=== PATIENT | male | born 1970 | race Caucasian/White ===

== ENCOUNTER 2017-01-13 15:29 | Emergency (ER) | payer OTHER ==
[~2017-01-13] VITALS: Ht 182.9 cm; Wt 86.2 kg
[2017-01-13] MEDS ORDERED: CANA300T (15:47)
[2017-01-13] MEDS ORDERED: SILD100T (15:47)
[2017-01-13] MEDS ORDERED: SITA1TBM4 (15:47)
[2017-01-13] MEDS ORDERED: LISI2.5T (15:47)
[2017-01-13] MEDS ORDERED: GLIP-197 (15:47)
[2017-01-13] MEDS ORDERED: NS IV 1000 ML 1,000 ML IV ONE ×2 (16:01→18:04)
[2017-01-13 16:12] LABS: BASOPHILS % (AUTO) 0 % (0-10); EOSINOPHILS # (AUTO) 0.2 10^3/uL (0.0-0.3); EOSINOPHILS % (AUTO) 1 % (0-10); LYMPHOCYTES # (AUTO) 2.2 X 10^3 (1.0-4.0); LYMPHOCYTES % (AUTO) 13 % (12-44); MEAN CORPUSCULAR HEMOGLOBIN 31 PG (25-34); MEAN CORPUSCULAR HGB CONC 36 G/DL (32-36); MEAN CORPUSCULAR VOLUME 88 FL (80-99); MEAN PLATELET VOLUME 11.4 FL (7.4-10.4); MONOCYTES # (AUTO) 0.9 X 10^3 (0.0-1.0); MONOCYTES % (AUTO) 6 % (0-12); NEUTROPHILS # (AUTO) 13.6 X 10^3 (1.8-7.8); NEUTROPHILS % (AUTO) 80 % (42-75); PLATELET COUNT 238 10^3/uL (130-400); RED BLOOD COUNT 5.84 10^6/uL (4.35-5.85); RED CELL DISTRIBUTION WIDTH 12.7 % (10.0-14.5); WHITE BLOOD COUNT 16.9 10^3/uL (4.3-11.0)
[2017-01-13] MEDS ORDERED: FAMOTIDINE 20MG/2ML IV (PEPCID) IVP ONE (16:15)
[2017-01-13] MEDS ORDERED: fentaNYL INJECTION 100 MCG/2 ML AMP IVP ONE (16:15)
[2017-01-13] MEDS ORDERED: ONDANSETRON 4 MG/2 ML (SDV) Z0FRAN IVP ONE (16:15)
[2017-01-13 16:27] LABS: BAND NEUTROPHILS 14 %; BASOPHILS % (MANUAL) 1 %; EOSINOPHILS % (MANUAL) 1 %; LYMPHOCYTES % (MANUAL) 19 %; NEUTROPHILS % (MANUAL) 61 %
[2017-01-13 16:37] LABS: ALANINE AMINOTRANSFERASE 29 U/L (0-55); ALBUMIN 4.6 GM/DL (3.2-4.5); ANION GAP 13 MMOL/L (5-14); ASPARTATE AMINO TRANSFERASE 16 U/L (5-34); BILIRUBIN,TOTAL 0.5 MG/DL (0.1-1.0); BLOOD UREA NITROGEN 15 MG/DL (7-18); BUN/CREATININE RATIO 14; CARBON DIOXIDE 23 MMOL/L (21-32); CHLORIDE 104 MMOL/L (98-107); CREATININE SERUM 1.07 MG/DL (0.60-1.30); GFR ESTIMATED > 60; GLUCOSE 194 MG/DL (70-105); LIPASE 32 U/L (8-78); SODIUM 140 MMOL/L (135-145); TOTAL PROTEIN 7.8 GM/DL (6.4-8.2)
[2017-01-13 17:12] LABS: BILIRUBIN,URINE NEGATIVE (NEGATIVE); KETONES,URINE 3+ (NEGATIVE); LEUKOCYTE ESTERASE ,URINE NEGATIVE (NEGATIVE); NITRITE,URINE NEGATIVE (NEGATIVE); PH,URINE 7 (5-9); PROTEIN,URINE 1+ (NEGATIVE); UROBILINOGEN,URINE NORMAL (NORMAL)
[2017-01-13 17:21] LABS: WBC,URINE 0-2 /HPF
[2017-01-13] MEDS ORDERED: NS 100 ML (IVPB) BAG IV ONE (17:30)
[2017-01-13] MEDS ORDERED: IOHEXOL 350 MG/ML 100 ML (OMNIPAQUE 350) VIAL IV ONE (17:30)
--- NOTE | 2017-01-13 17:34 | ED Abdominal Pain ---
General Chief Complaint: Abdominal/GI Problems Stated Complaint: FEELING LIKE HES GONNA PASS OUT, STOMACH PAIN,SOB Nursing Triage Note: ARRIVED VIA AMB BENT OVER HOLDING STOMACH. 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 Sepsis Screen: No Definite Risk Source of Information: Patient Exam Limitations: No Limitations History of Present Illness Time Seen By Provider: 15:36 Initial Comments This 46-year-old gentleman presents to the emergency room with severe lower abdominal pain that started within the last few hours. He reports more mild and intermittent cramping and constipation over the past month. Today the pain became severe. His last bowel movement was about 3 hours prior to arrival and was normal. The intense pain has been accompanied by vomiting. He denies any urinary changes or fever. He feels like he needs to produce a bowel movement but cannot. Allergies and Home Medications Allergies Coded Allergies: amoxicillin (Verified Allergy, Severe, RASH, 01/13/17) clavulanic acid (Verified Allergy, Severe, RASH, 01/13/17) Home Medications Canagliflozin 300 Mg Tablet, (Reported) Glipizide 10 Mg Tab.er.24, (Reported) Lisinopril 2.5 Mg Tablet, (Reported) Sildenafil Citrate 100 Mg Tablet, (Reported) Sitagliptin Phos/Metformin HCl 1 Each Tbmp.24hr, (Reported) Review of Systems Constitutional: no symptoms reported EENTM: No Symptoms Reported Respiratory: No Symptoms Reported Cardiovascular: No Symptoms Reported Gastrointestinal: See HPI Genitourinary: No Symptoms Reported Musculoskeletal: no symptoms reported Skin: no symptoms reported Psychiatric/Neurological: No Symptoms Reported Endocrine: No Symptoms Reported Past Goohutm-Ojczow-Qmooxz Hx Patient Social History Alcohol Use: Denies Use Recreational Drug Use: No Smoking Status: Current Everyday Smoker Recent Foreign Travel: No Contact w/Someone Who Travel: No Recent Infectious Disease Expo: No Surgeries History of Surgeries: Yes Surgeries: Appendectomy Respiratory History of Respiratory Disorde: No Cardiovascular History of Cardiac Disorders: No Neurological History of Neurological Disord: No Reproductive System Hx Reproductive Disorders: No Genitourinary History of Genitourinary Disor: No Gastrointestinal History of Gastrointestinal Di: No Musculoskeletal History of Musculoskeletal Dis: No Endocrine History of Endocrine Disorders: Yes Endocrine Disorders: Diabetes, Non-Insulin dep HEENT History of HEENT Disorders: No Cancer History of Cancer: No Psychosocial History of Psychiatric Problem: No Integumentary History of Skin or Integumenta: No Physical Exam Vital Signs VS - Last 72 Hours, by Label 01/13/17 15:37 Temp 98.0 Pulse 102 Resp 18 B/P (MAP) 114/94 Pulse Ox 99 Capillary Refill : Less Than 3 Seconds General Appearance: WD/WN, moderate distress HEENT: PERRL/EOMI, normal ENT inspection Neck: normal inspection Respiratory: lungs clear, normal breath sounds, no respiratory distress, no accessory muscle use Cardiovascular: regular rate, rhythm, no edema, no murmur Gastrointestinal: normal bowel sounds, soft, tenderness (lower abdomen) Extremities: normal inspection, no pedal edema Neurologic/Psychiatric: customer relationship specialist II-XII nml as tested, no motor/sensory deficits, alert, normal mood/affect, oriented x 3 Skin: normal color, warm/dry Progress/Results/Core Measures Results/Orders Lab Results Laboratory Tests Test 01/13/17 16:05 01/13/17 17:06 Range/Units White Blood Count 16.9 H 4.3-11.0 10^3/uL Red Blood Count 5.84 4.35-5.85 10^6/uL Hemoglobin 18.3 H 13.3-17.7 G/DL Hematocrit 51 40-54 % Mean Corpuscular Volume 88 80-99 FL Mean Corpuscular Hemoglobin 31 25-34 PG Mean Corpuscular Hemoglobin Concent 36 32-36 G/DL Red Cell Distribution Width 12.7 10.0-14.5 % Platelet Count 238 130-400 10^3/uL Mean Platelet Volume 11.4 H 7.4-10.4 FL Neutrophils (%) (Auto) 80 H 42-75 % Lymphocytes (%) (Auto) 13 12-44 % Monocytes (%) (Auto) 6 0-12 % Eosinophils (%) (Auto) 1 0-10 % Basophils (%) (Auto) 0 0-10 % Neutrophils # (Auto) 13.6 H 1.8-7.8 X 10^3 Lymphocytes # (Auto) 2.2 1.0-4.0 X 10^3 Monocytes # (Auto) 0.9 0.0-1.0 X 10^3 Eosinophils # (Auto) 0.2 0.0-0.3 10^3/uL Basophils # (Auto) 0.0 0.0-0.1 10^3/uL Neutrophils % (Manual) 61 % Lymphocytes % (Manual) 19 % Monocytes % (Manual) 4 % Eosinophils % (Manual) 1 % Basophils % (Manual) 1 % Band Neutrophils 14 % Blood Morphology Comment NORMAL Sodium Level 140 135-145 MMOL/L Potassium Level 4.0 3.6-5.0 MMOL/L Chloride Level 104 98-107 MMOL/L Carbon Dioxide Level 23 21-32 MMOL/L Anion Gap 13 5-14 MMOL/L Blood Urea Nitrogen 15 7-18 MG/DL Creatinine 1.07 0.60-1.30 MG/DL Estimat Glomerular Filtration Rate > 60 BUN/Creatinine Ratio 14 Glucose Level 194 H 70-105 MG/DL Calcium Level 10.0 8.5-10.1 MG/DL Total Bilirubin 0.5 0.1-1.0 MG/DL Aspartate Amino Transf (AST/SGOT) 16 5-34 U/L Alanine Aminotransferase (ALT/SGPT) 29 0-55 U/L Alkaline Phosphatase 79 40-136 U/L Total Protein 7.8 6.4-8.2 GM/DL Albumin 4.6 H 3.2-4.5 GM/DL Lipase 32 8-78 U/L Urine Color YELLOW Urine Clarity CLEAR Urine pH 7 5-9 Urine Specific [place] 1.010 L 1.016-1.022 Urine Protein 1+ H NEGATIVE Urine Glucose (UA) 4+ H NEGATIVE Urine Ketones 3+ H NEGATIVE Urine Nitrite NEGATIVE NEGATIVE Urine Bilirubin NEGATIVE NEGATIVE Urine Urobilinogen NORMAL NORMAL MG/DL Urine Leukocyte Esterase NEGATIVE NEGATIVE Urine RBC (Auto) NEGATIVE NEGATIVE Urine RBC 0-2 /HPF Urine WBC 0-2 /HPF Urine Crystals NONE /LPF Urine Bacteria NEGATIVE /HPF Urine Casts NONE /LPF Urine Mucus NEGATIVE /LPF Urine Culture Indicated NO My Orders Orders - ARIC SUTTON MD Cbc With Automated Diff (01/13/17 15:36) Comprehensive Metabolic Panel (01/13/17 15:36) Lipase (01/13/17 15:36) Ua Culture If Indicated (01/13/17 15:36) Saline Lock/Iv-Start (01/13/17 15:36) Fentanyl Injection (Sublimaze Injection (01/13/17 16:15) Ondansetron Injection (Zofran Injectio (01/13/17 16:15) Famotidine Injection (Pepcid Injection) (01/13/17 16:15) Ns Iv 1000 Ml (Sodium Chloride 0.9%) (01/13/17 16:01) Manual Differential (01/13/17 16:05) Ct Abdomen/Pelvis W (01/13/17 17:18) Iohexol Injection (Omnipaque 350 Mg/Ml 1 (01/13/17 17:30) Ns (Ivpb) (Sodium Chloride 0.9% Ivpb Bag (01/13/17 17:30) Pharmacy Communication (Pharmacy Communi (01/13/17 17:19) Ketorolac Injection (Toradol Injection) (01/13/17 18:15) Hyoscyamine Sl Tablet (Levsin Sl Tablet) (01/13/17 18:15) Ns Iv 1000 Ml (Sodium Chloride 0.9%) (01/13/17 18:04) Medications Given in ED Current Medications Medications Dose Ordered Sig/Ishaan Route Start Time Stop Time Status Last Admin Dose Admin Famotidine 20 mg ONCE ONCE IVP 01/13/17 16:15 01/13/17 16:16 DC 01/13/17 16:14 20 MG Fentanyl Citrate 75 mcg ONCE ONCE IVP 01/13/17 16:15 01/13/17 16:16 DC 01/13/17 16:11 75 MCG Iohexol 100 ml ONCE ONCE IV 01/13/17 17:30 01/13/17 17:31 DC 01/13/17 17:33 100 ML Ondansetron HCl 8 mg ONCE ONCE IVP 01/13/17 16:15 01/13/17 16:16 DC 01/13/17 16:12 8 MG Sodium Chloride 100 ml ONCE ONCE IV 01/13/17 17:30 01/13/17 17:31 DC 01/13/17 17:33 80 ML Sodium Chloride 1,000 ml @ 0 mls/hr Q0M ONCE IV 01/13/17 16:01 01/13/17 16:02 DC 01/13/17 16:14 1,000 MLS/HR Vital Signs/I&O Vital Sign - Last 12Hours 01/13/17 15:37 Temp 98.0 Pulse 102 Resp 18 B/P (MAP) 114/94 Pulse Ox 99 Blood Pressure Mean: 101 Progress Note #1: Time: 17:20 Progress Note Patient received fentanyl, Zofran, and a liter of IV fluids as part of initial management. Leukocytosis was noted on the labs. CT scan was ordered for further evaluation. Progress Note #2: Time: 18:12 Progress Note Patient was feeling much better after treatment. CT scan showed no specific pathology to explain his pain. By my interpretation there appeared to be some small bowel inflammatory changes consistent with enteritis. Patient will receive Toradol, Levsin, and a second liter of IV fluids for further treatment before dismissal. Diagnostic Imaging Diagonstic Imaging: CT Plain Films/CT/US/NM/MRI: abdomen, pelvis Comments CT abdomen and pelvis viewed by me and report reviewed. See report below: NAME: ALONDRA HAYES [facility] REC#: [id number] PT STATUS: REG ER : 1970 PHYSICIAN: ARIC SUTTON MD ADMIT DATE: 01/13/17/ER Draft Date of Exam:01/13/17 CT ABDOMEN/PELVIS W PROCEDURE: CT abdomen and pelvis with contrast. TECHNIQUE: Multiple contiguous axial images were obtained through the abdomen and pelvis after administration of intravenous contrast. INDICATION: Constipation. Pelvic pain. COMPARISON: None. FINDINGS: There is mild bilateral basilar atelectasis. There is mild diffuse hepatic steatosis. No focal hepatic mass is seen. The portal vein enhances normally. The gallbladder appears unremarkable. There is no biliary dilatation. The pancreas and spleen appear unremarkable. There are bilateral small adrenal masses which are nonspecific but likely benign adenomas. There is some scarring and cystic change of the lateral left renal cortex. Kidneys are otherwise unremarkable. The appendix is not identified; however, there is no evidence of appendicitis. There is diverticulosis without evidence of diverticulitis. There is no free fluid, free air, or adenopathy. Bladder appears unremarkable. There is atherosclerosis of the abdominal aorta without aneurysm. No acute osseous abnormality is demonstrated. IMPRESSION: 1. No acute abnormality is seen in the abdomen and pelvis. 2. Diverticulosis without evidence of diverticulitis. 3. Mild diffuse hepatic steatosis. Left renal cyst. 4. Mild bilateral basilar atelectasis. Dictated on workstation # [id number] Dict: 01/13/17 1744 Trans: 01/13/17 [id number] Interpreted by: CHAO JAVIER DO Departure Impression Impression: Primary Impression: Lower abdominal pain Additional Impressions: Nausea and vomiting Qualified Codes: R11.2 - Nausea with vomiting, unspecified Leukocytosis Qualified Codes: D72.829 - Elevated white blood cell count, unspecified Disposition: 01 HOME, SELF-CARE Condition: Improved Departure-Patient Inst. Decision time for Depature: 18:05 Referrals: RAKAN DICKEY MD (PCP/Family) Primary Care Physician Patient Instructions: Acute Abdomen (Belly Pain), Adult (DC) Add. Discharge Instructions: Drink plenty of clear liquids. Gradually advance your diet with small quantities of bland food as tolerated. You may take Tylenol (acetaminophen) up to 1000 mg every 6 hours as needed for pain. For cramping, you may use the Levsin (hyoscyamine) as prescribed. Use Zofran (ondansetron) as prescribed for nausea and vomiting. Return to the emergency room if you have worsening symptoms. All discharge instructions reviewed with patient and/or family. Voiced understanding. Scripts Ondansetron (Zofran Odt) 4 Mg Tab.rapdis 4 MG SL Q4H Y for NAUSEA/VOMITING-1ST LINE, #10 TAB Prov: ARIC SUTTON MD 01/13/17 Hyoscyamine Sulfate (Levsin-Sl) 0.125 Mg Tab.subl 1-2 MG SL Q4H Y for CRAMPS, #10 TAB Prov: ARIC SUTTON MD 01/13/17 ARIC SUTTON MD Jan 13, 2017 17:34
--- NOTE | 2017-01-13 17:51 | Diagnostic Imaging Report ---
PROCEDURE: CT abdomen and pelvis with contrast. TECHNIQUE: Multiple contiguous axial images were obtained through the abdomen and pelvis after administration of intravenous contrast. INDICATION: Constipation. Pelvic pain. COMPARISON: None. FINDINGS: There is mild bilateral basilar atelectasis. There is mild diffuse hepatic steatosis. No focal hepatic mass is seen. The portal vein enhances normally. The gallbladder appears unremarkable. There is no biliary dilatation. The pancreas and spleen appear unremarkable. There are bilateral small adrenal masses which are nonspecific but likely benign adenomas. There is some scarring and cystic change of the lateral left renal cortex. Kidneys are otherwise unremarkable. The appendix is not identified; however, there is no evidence of appendicitis. There is diverticulosis without evidence of diverticulitis. There is no free fluid, free air, or adenopathy. Bladder appears unremarkable. There is atherosclerosis of the abdominal aorta without aneurysm. No acute osseous abnormality is demonstrated. IMPRESSION: 1. No acute abnormality is seen in the abdomen and pelvis. 2. Diverticulosis without evidence of diverticulitis. 3. Mild diffuse hepatic steatosis. Left renal cyst. 4. Mild bilateral basilar atelectasis. Dictated by: Dictated on workstation # [id number]
[2017-01-13] MEDS ORDERED: ONDA4TAB8 SL (18:15)
[2017-01-13] MEDS ORDERED: KETOROLAC 30 MG/ML VIAL IVP ONE (18:15)
[2017-01-13] MEDS ORDERED: HYOS0.1283 SL (18:15)
[2017-01-13] MEDS ORDERED: HYOSCYAMINE 0.125 MG (LEVSIN) TAB PO ONE (18:15)
[2017-01-13 19:14] VITALS: BP 123/76
== END 2017-01-13 19:14 | disposition home or self-care (01) ==
LOC: ER 15:33
DX: R10.30 Lower abdominal pain, unspecified (principal); R11.2 Nausea with vomiting, unspecified; D72.829 Elevated white blood cell count, unspecified; E11.9 Type 2 diabetes mellitus without complications; F17.200 Nicotine dependence, unspecified, uncomplicated; Z90.49 Acquired absence of other specified parts of digestive tract; Z79.84 Long term (current) use of oral hypoglycemic drugs
CPT/HCPCS: 36415; 74177; 80053; 81000; 83690; 85007; 85027; 96361; 96374; 96375

== ENCOUNTER 2021-01-09 23:40 | Emergency (ER) | payer OTHER ==
[~2021-01-09] VITALS: Ht 177.8 cm; Wt 83.5 kg
[~2021-01-09 23:40] MED LIST: CANA300T; GLIP10TA24; HYOS0.1283 SL; LISI2.5T13; ONDA4TAB8 SL; SILD100T; SITA1TBM4
--- OUTSIDE RECORDS SUMMARY | 2021-01-09 23:48 | XMS REPORT | Clinical Summary ---
Author Author [facility] Organization [facility] Address Unknown Phone Unavailable Care Team Providers Care Route Service Manager Name Role Phone Misael Price MD PCP Allergies Comments Active Allergy Reactions Severity Noted Date Amoxicillin-Pot Hives 01/05/2015 Clavulanate Medications End Date Status Medication Sig Dispensed Refills Start Date Active VIAGRA 100 mg tablet 0 5 Active aspirin 81 MG EC tablet Take 81 mg by 0 mouth daily. Active multivitamin capsule Take 1 0 capsule by mouth daily. Active avanafil (STENDRA) 200 mg Take 1 tablet 12 tablet 3 Tab (200 mg 8 total) by mouth daily. Active ONETOUCH VERIO test Use to check 100 each 5 06/25 strips fingerstick 8 glucose 3 times a day. Active miscellaneous medical Freestyle 9 each 1 02/14 supply MiscIndications: Bruno sensor 8 Controlled type 2 kit. Change diabetes mellitus without sensor every complication, without 10 days. long-term current use of insulin (HCC) Active metformin (GLUCOPHAGE-XR) TAKE FOUR 120 tablet 5 24 hr tablet 500 mg TABLETS BY 9 MOUTH EVERY DAY WITH BREAKFAST Active pen needle, diabetic (BD Use to inject 50 each 1 ANI 2ND GEN PEN NEEDLE) Ozempic 0 32 gauge x 5/32" pen weekly. needles Active DEXCOM G6 HAT BLOCK MAKER Use to check 1 Device 1 MiscIndications: blood sugar 0 Uncontrolled type 2 six times diabetes mellitus with daily hypoglycemia, unspecified hypoglycemia coma status (HCC) Active DEXCOM G6 TRANSMITTER CHANGE EVERY 1 Device 3 DeviIndications: THREE MONTHS, 0 Uncontrolled type 2 USE TO CHECK diabetes mellitus with BLOOD SUGARS hypoglycemia, unspecified SIX TIMES hypoglycemia coma status DAILY (HCC) Active atorvastatin (LIPITOR) 40 TAKE 1 TABLET 90 tablet 1 MG tabletIndications: BY MOUTH ONCE 1 Hyperlipidemia, EVERY DAY unspecified hyperlipidemia type Active metformin (GLUCOPHAGE-XR) TAKE FOUR 360 tablet 1 24 hr tablet 500 TABLETS BY 1 mgIndications: MOUTH EVERY Uncontrolled type 2 DAY WITH diabetes mellitus with BREAKFAST hyperglycemia (HCC) Active glipiZIDE (GLUCOTROL XL) TAKE ONE 30 tablet 5 0 2.5 MG 24 hr tablet TABLET BY 1 MOUTH EVERY DAY Active OZEMPIC 1 mg/dose (2 INJECT 1 MG 9 mL 1 07/17 mg/1.5 mL) UNDER THE 1 syringeIndications: SKIN EVERY 7 Diabetes mellitus type 2, DAYS uncontrolled (HCC) Active INVOKANA 300 TAKE 1 TABLET 90 tablet 1 mgIndications: Type 2 DAILY 1 diabetes mellitus with hyperglycemia (HCC) Active DEXCOM G6 SENSOR TO USE TO 9 Device 1 DeviIndications: CHECK BLOOD 1 Uncontrolled type 2 SUGAR SIX diabetes mellitus with TIMES DAILY, hypoglycemia, unspecified CHANGE SENSOR hypoglycemia coma status EVERY TEN (HCC) DAYS Active lisinopriL TAKE 1 TABLET 90 tablet 3 (PRINIVIL,ZESTRIL) 2.5 MG DAILY 1 tabletIndications: Type 2 diabetes mellitus with hyperglycemia (HCC), Essential hypertension Active metformin (GLUCOPHAGE-XR) TAKE FOUR 360 tablet 1 24 hr tablet 500 TABLETS BY 1 mgIndications: Type 2 MOUTH EVERY diabetes mellitus with DAY WITH hyperglycemia, with BREAKFAST long-term current use of insulin (HCC) Active Problems Problem Noted Date Diabetes mellitus type 2, uncontrolled 01/05/2015 Hyperlipidemia 01/05/2015 Essential hypertension 01/05/2015 Encounters Care Team Description Date Type Specialty Pete Osorio MD Medication Refill 12/19/2020 Refill Endocrinology Pete Osorio MD Medication Refill 11/14/2020 Refill Endocrinology from Last 3 Months Immunizations Name Administration Dates Next Due Pfizer Sars-cov-2 06/15/2020, 05/25/2020 Family History Medical History Relation Name Comments Diabetes Brother Diabetes Paternal Grandmother Relation Name Status Comments Brother Paternal Grandmother Social History Date Tobacco Use Types Packs/Day Years Used Quit: 03/16/2017 Former Smoker Smokeless Tobacco: Never Used Comments Alcohol Use Standard Drinks/Week Yes 0 (1 standard drink = 0.6 o z pure alcohol) Sex Assigned at Date Recorded Male 08/10/2019 7:20 AM CDT Last Filed Vital Signs Reading Time Taken Comments Vital Sign 127/80 08/24/2020 9:41 AM CDT Blood Pressure 86 08/24/2020 9:41 AM CDT Pulse 36.1 C (97 F) 08/24/2020 9:41 AM CDT Temperature 18 07/30/2018 8:52 AM CDT Respiratory Rate 96% 08/24/2020 9:41 AM CDT Oxygen Saturation - - Inhaled Oxygen Concentration 83.6 kg (184 lb 6.4 oz) 08/24/2020 9:41 AM CDT Weight 177.8 cm (5' 10") 08/24/2020 9:41 AM CDT Height 26.46 08/24/2020 9:41 AM CDT Body Mass Index Plan of Treatment Care Team Description Date Type Specialty Pete Osorio MD [address] [facility] [address] [place] [address] 01/18/2021 Office Visit Endocrinology Health Maintenance Due Date Last Done Comments Td/Tdap# 1970 Tobacco Cessation 1970 Counseling # Diabetes Mellitus 12/18/2018 12/18/2017, Ophthalmology Exam 10/31/2016, 06/29/2015 Colorectal Screening via 2019 Colonoscopy Zoster Vaccine# (1 of 2) 2019 Influenza Vaccine (#1) 2020 12/22/2018 COVID-19 Vaccine (3 - 12/15/2020 06/15/2020, Pfizer booster) 05/25/2020 Diabetes Mellitus Foot 12/15/2020 12/16/2019, Exam 12/03/2018, 10/30/2017, Additional history exists Diabetes Mellitus 02/23/2021 08/24/2020, Hemoglobin A1C 04/20/2020, 12/16/2019, Additional history exists Lipid Screening 04/22/2021 04/22/2020, 04/08/2019, 04/16/2018, Additional history exists Pneumococcal Vaccine: 2034 12/22/2018 Pediatrics (0 to 5 Years) and At-Risk Patients (6 to 64 Years) (2 of 2 - PPSV23) Results Not on filefrom Last 3 Months Insurance Type Payer Benefit Subscriber ID Effective Phone Address Plan / Dates Group [facility] [id number] 2014-P [phone] [address] [address] [place] [address] Advance Directives For more information, please contact: [phone] Patient Tile Molder Explanation Type Date Recorded ERROR Advance Directives 05/23/2016 11:53 AM and Living Will Power of [employer] Health Care Directive Care Teams Start Date End Date Route Service Manager Relationship Specialty 01/05/15 Misael Price MD PCP - General Family [address] [facility] [address] [place] [address]
--- OUTSIDE RECORDS SUMMARY | 2021-01-09 23:48 | XMS REPORT | Encounter Summary ---
Author Author [facility] Organization [facility] Address Unknown Phone Unavailable Care Team Providers Care Studio Control Operator Name Role Phone Misael Price MD PCP Reason for Visit * Reason Comments Medication Refill Encounter Details Care Team Description Date Type Department Pete Osorio MD [address] [facility] [address] [place] [address] Medication Refill 12/19/2020 Refill [facility] [place] [address] [facility] [address] [place] [address] Social History Date Tobacco Use Types Packs/Day Years Used Quit: 03/16/2017 Former Smoker Smokeless Tobacco: Never Used Comments Alcohol Use Standard Drinks/Week Yes 0 (1 standard drink = 0.6 o z pure alcohol) Sex Assigned at Date Recorded Male 08/10/2019 7:20 AM CDT documented as of this encounter Plan of Treatment Care Team Description Date Type Specialty Pete Osorio MD [address] [facility] [address] [place] [address] 01/18/2021 Office Visit Endocrinology documented as of this encounter Visit Diagnoses Diagnosis Type 2 diabetes mellitus with hyperglyc emia, with long-term current use of insulin (HCC) - Primary documented in this encounter Care Teams Start Date End Date Studio Control Operator Relationship Specialty 01/05/15 Misael Price MD PCP - [facility] [address] [facility] [address] [place] [address] documented as of this encounter
--- OUTSIDE RECORDS SUMMARY | 2021-01-09 23:48 | XMS REPORT | Encounter Summary ---
Author Author [facility] Organization [facility] Address Unknown Phone Unavailable Care Team Providers Care Vertical Boring Mill Operator Name Role Phone Misael Price MD PCP Reason for Visit * Reason Comments Medication Refill Encounter Details Care Team Description Date Type Department Pete Osorio MD [address] [facility] [address] [place] [address] Medication Refill 11/14/2020 Refill [facility] [place] [address] [facility] [address] [place] [address] Social History Date Tobacco Use Types Packs/Day Years Used Quit: 03/16/2017 Former Smoker Smokeless Tobacco: Never Used Comments Alcohol Use Standard Drinks/Week Yes 0 (1 standard drink = 0.6 o z pure alcohol) Sex Assigned at Date Recorded Male 08/10/2019 7:20 AM CDT documented as of this encounter Plan of Treatment Care Team Description Date Type Specialty Pete Osorio MD [address] [facility] [address] [place] [address] 01/18/2021 Office Visit Endocrinology documented as of this encounter Visit Diagnoses Diagnosis Type 2 diabetes mellitus with hyperglyc emia (HCC) Essential hypertension Unspecified essential hypertension documented in this encounter Care Teams Start Date End Date Vertical Boring Mill Operator Relationship Specialty 01/05/15 Misael Price MD PCP - [facility] [address] [facility] [address] [place] [address] documented as of this encounter
[2021-01-10] MEDS ORDERED: fentaNYL INJ 100 MCG/2 ML AMP IVP ONE (00:15)
[2021-01-10] MEDS ORDERED: NS IV 1000 ML 1,000 ML IV ONE (00:15)
[2021-01-10] MEDS ORDERED: ONDANSETRON 4 MG/2 ML (SDV) Z0FRAN IVP ONE (00:15)
--- NOTE | 2021-01-10 00:18 | ED Abdominal Pain ---
General Chief Complaint: Abdominal/GI Problems Stated Complaint: ABD PAIN Source of Information: Patient, EMS Exam Limitations: No Limitations History of Present Illness Date Seen by Provider: Jan 09, 2021 Time Seen by Provider: 23:48 Initial Comments Patient is a 50-year-old male who presents to the emergency department today with a chief complaint of sudden onset of lower abdominal pain that awoke him from sleep. Patient states that he has been constipated in recent weeks only having a bowel movement every 3 days or so. He recently underwent prep for colonoscopy 1 to 2 weeks ago but the prep was inadequate so he was not able to have his colonoscopy. Patient denies any previous issues with colonoscopy in past. He is a diabetic, hypertensive. He denies any recent illnesses such as fevers, chills, cough or congestion. He had mild nausea associated with the onset of the pain. He had an urge to have a bowel movement and was sitting on the toilet became very lightheaded and diaphoretic and actually states that he had a syncopal event. Patient denies any recent black or bloody stools no complaints no testicular pain or swelling. He did have similar symptoms about a year ago but cannot recall what the diagnosis was. He does smoke, occasional alcohol use no recreational drugs. History of appendectomy. All other review of systems reviewed and negative except as stated. Timing/Duration: 1 Hour Severity/Quality: Severe, Aching Location: RLQ, LLQ, Suprapubic Radiation: No Radiation Activities at Onset: Sleeping Associated Symptoms: Other (constipation) Allergies and Home Medications Allergies Coded Allergies: amoxicillin (Verified Allergy, Severe, RASH, 01/13/17) clavulanic acid (Verified Allergy, Severe, RASH, 01/13/17) Patient Home Medication List Home Medication List Reviewed: Yes Canagliflozin (Invokana) 300 Mg Tablet, (Reported) Entered as Reported by: LISSETTE GARRETT on 01/13/171546 Glipizide (Glipizide ER) 10 Mg Tab.er.24, (Reported) Entered as Reported by: LISSETTE GARRETT on 01/13/171546 Hyoscyamine Sulfate (Levsin-Sl) 0.125 Mg Tab.subl, 1-2 MG SL Q4H PRN for CRAMPS Prescribed by: ARIC BATRES on 01/13/171814 Lisinopril (Lisinopril) 2.5 Mg Tablet, (Reported) Entered as Reported by: LISSETTE GARRETT on 01/13/171546 Ondansetron (Zofran Odt) 4 Mg Tab.rapdis, 4 MG SL Q4H PRN for NAUSEA/VOMITING- 1ST LINE Prescribed by: ARIC BATRES on 01/13/171814 Sildenafil Citrate (Viagra) 100 Mg Tablet, (Reported) Entered as Reported by: LISSETTE GARRETT on 01/13/171546 Sitagliptin Phos/Metformin HCl (Janumet Xr 50-1,000 mg Tablet) 1 Each Tbmp.24hr, (Reported) Entered as Reported by: LISSETTE GARRETT on 01/13/171546 Review of Systems Review of Systems Constitutional: see HPI EENTM: No Symptoms Reported Respiratory: No Symptoms Reported Cardiovascular: No Symptoms Reported Gastrointestinal: Abdominal Pain, Constipated, Nausea Genitourinary: No Symptoms Reported Musculoskeletal: no symptoms reported Skin: no symptoms reported Psychiatric/Neurological: No Symptoms Reported All Other Systems Reviewed Negative Unless Noted: Yes Past Xypbage-Lqagab-Uzhucv Hx Past Medical History Surgeries: Yes Appendectomy Respiratory: No Cardiac: No Neurological: No Reproductive Disorders: No Genitourinary: No Gastrointestinal: No Musculoskeletal: No Endocrine: Yes Diabetes, Non-Insulin dep HEENT: No Cancer: No Psychosocial: No Integumentary: No Physical Exam Vital Signs Vital Signs - First Documented 01/09/21 23:41 Temp 36.3 Pulse 66 Resp 20 B/P (MAP) 139/87 (104) Pulse Ox 94 O2 Delivery Room Air Capillary Refill : Height/Weight/BMI Height: 6'" Weight: 190lbs. oz. 86.176194nl; BMI Method:Estimated General Appearance: WD/WN, moderate distress HEENT: PERRL/EOMI Respiratory: lungs clear, normal breath sounds, no respiratory distress, no accessory muscle use Cardiovascular: regular rate, rhythm, no murmur Gastrointestinal: soft, tenderness (LLQ more than right; also suprapubic; no rebound; voluntary guarding; hyperactive bowel sounds) Extremities: non-tender, normal inspection, no pedal edema, no calf tenderness Back: normal inspection, no CVA tenderness Neurologic/Psychiatric: alert, normal mood/affect, oriented x 3 Skin: normal color, warm/dry, other (dexcom right anterior abdominal wall (removed for CT abdomen)) Progress/Results/Core Measures Results/Orders Lab Results Laboratory Tests Test 01/09/21 23:50 01/10/21 00:03 Range/Units White Blood Count 10.1 4.3-11.0 10^3/uL Red Blood Count 4.99 4.30-5.52 10^6/uL Hemoglobin 15.9 13.3-17.7 g/dL Hematocrit 46 40-54 % Mean Corpuscular Volume 91 80-99 fL Mean Corpuscular Hemoglobin 32 25-34 pg Mean Corpuscular Hemoglobin Concent 35 32-36 g/dL Red Cell Distribution Width 12.0 10.0-14.5 % Platelet Count 252 130-400 10^3/uL Mean Platelet Volume 10.7 9.0-12.2 fL Immature Granulocyte % (Auto) 0 % Neutrophils (%) (Auto) 50 42-75 % Lymphocytes (%) (Auto) 38 12-44 % Monocytes (%) (Auto) 8 0-12 % Eosinophils (%) (Auto) 4 0-10 % Basophils (%) (Auto) 1 0-10 % Neutrophils # (Auto) 5.0 1.8-7.8 10^3/uL Lymphocytes # (Auto) 3.9 1.0-4.0 10^3/uL Monocytes # (Auto) 0.8 0.0-1.0 10^3/uL Eosinophils # (Auto) 0.4 H 0.0-0.3 10^3/uL Basophils # (Auto) 0.1 0.0-0.1 10^3/uL Immature Granulocyte # (Auto) 0.0 0.0-0.1 10^3/uL Percent Immature Platelet Fraction 5.0 0.0-7.6 % Sodium Level 142 135-145 MMOL/L Potassium Level 3.6 3.6-5.0 MMOL/L Chloride Level 106 98-107 MMOL/L Carbon Dioxide Level 20 L 21-32 MMOL/L Anion Gap 16 H 5-14 MMOL/L Blood Urea Nitrogen 13 7-18 MG/DL Creatinine 0.93 0.60-1.30 MG/DL Estimat Glomerular Filtration Rate 86 BUN/Creatinine Ratio 14 Glucose Level 173 H 70-105 MG/DL Calcium Level 10.1 8.5-10.1 MG/DL Corrected Calcium 9.9 8.5-10.1 MG/DL Total Bilirubin 0.6 0.1-1.0 MG/DL Aspartate Amino Transf (AST/SGOT) 21 5-34 U/L Alanine Aminotransferase (ALT/SGPT) 30 0-55 U/L Alkaline Phosphatase 68 40-136 U/L Total Protein 6.9 6.4-8.2 GM/DL Albumin 4.3 3.2-4.5 GM/DL Urine Color YELLOW Urine Clarity CLEAR Urine pH 8.0 5-9 Urine Specific Douglas 1.015 L 1.016-1.022 Urine Protein 1+ H NEGATIVE Urine Glucose (UA) 3+ H NEGATIVE Urine Ketones NEGATIVE NEGATIVE Urine Nitrite NEGATIVE NEGATIVE Urine Bilirubin NEGATIVE NEGATIVE Urine Urobilinogen 0.2 < = 1.0 MG/DL Urine Leukocyte Esterase NEGATIVE NEGATIVE Urine RBC (Auto) NEGATIVE NEGATIVE Urine RBC NONE /HPF Urine WBC RARE /HPF Urine Squamous Epithelial Cells NONE /HPF Urine Crystals PRESENT H /LPF Urine Amorphous Sediment FEW SONNY PHOSPHATE H /LPF Urine Bacteria NEGATIVE /HPF Urine Casts NONE /LPF Urine Mucus SMALL H /LPF Urine Culture Indicated NO My Orders Orders - HENNY MOLINA MD Ns Iv 1000 Ml (Sodium Chloride 0.9%) (01/10/21 00:15) Fentanyl Inj (Sublimaze Injection) (01/10/21 00:15) Ondansetron Injection (Zofran Injectio (01/10/21 00:15) Cbc With Automated Diff (01/09/21 23:50) Comprehensive Metabolic Panel (01/09/21 23:50) Urinalysis (01/10/21 00:03) Ct Abdomen/Pelvis Wo (01/10/21 ) Medications Given in ED Current Medications Medications Dose Ordered Sig/Ishaan Route Start Time Stop Time Status Last Admin Dose Admin Fentanyl Citrate 50 mcg ONCE ONCE IVP 01/10/21 00:15 01/10/21 00:16 DC 01/10/21 00:32 50 MCG Ondansetron HCl 4 mg ONCE ONCE IVP 01/10/21 00:15 01/10/21 00:16 DC 01/10/21 00:32 4 MG Sodium Chloride 1,000 ml @ 0 mls/hr Q0M ONCE IV 01/10/21 00:15 01/10/21 00:16 DC 01/10/21 00:31 999 MLS/HR Vital Signs/I&O 01/09/21 23:41 Temp 36.3 Pulse 66 Resp 20 B/P (MAP) 139/87 (104) Pulse Ox 94 O2 Delivery Room Air Progress Progress Note : Time: 01:29 Progress Note Patient reexamined, states that he is feeling better. Labs reviewed and unremarkable, modestly elevated glucose. Urine is clean, no evidence of infection. CT scan of the abdomen and pelvis without contrast shows no acute abnormalities in the abdomen or pelvis with moderate colonic stool burden. Discussed the need for stool softeners, increased water intake and possibly taking some xdnf-yhe-tuiqjgm magnesium citrate to move bowels. Patient verbalizes understanding. He is comfortable with the plan of care. All questions are sought and answered. Diagnostic Imaging Diagonstic Imaging: CT Plain Films/CT/US/NM/MRI: abdomen Comments CT abdomen pelvis without contrast per stat rad 1 no acute abnormality noted in the abdomen or pelvis. 2. moderate colonic s tool burden 3. mild colonic diverticulosis without diverticulitis 4. cholelithiasis without evidence of cholecystitis 5. 2 punctate nonobstructing stones in the kidneys bilaterally Departure Impression Primary Impression: Abdominal pain Qualified Codes: R10.32 - Left lower quadrant pain Additional Impression: Constipation Qualified Codes: K59.00 - Constipation, unspecified Disposition: 01 HOME, SELF-CARE Condition: Improved Departure-Patient Inst. Decision time for Depature: 01:31 Referrals: RAKAN DICKEY MD (PCP/Family) Primary Care Physician Patient Instructions: Constipation, Adult ED Add. Discharge Instructions: Increase your water intake to soften stools and help with constipation symptoms. Use [id number]-adr-[id number] stool softeners as directed on the packaging. Xcvb-oqk-maehpme magnesium citrate can help also relieve symptoms of constipation. I would recommend half a bottle tomorrow morning. Stay close to a bathroom after you have drink the magnesium citrate. Return to the emergency room for any worsening abdominal pain especially with fever, vomiting, bloody stools or other emergent concerning symptoms. HENNY MOLINA MD Jan 10, 2021 00:18
[2021-01-10 00:21] LABS: AMORPHOUS SEDIMENT,UR FEW AMOR PHOSPHATE /LPF; BACTERIA,URINE NEGATIVE /HPF; BILIRUBIN,URINE NEGATIVE (NEGATIVE); CLARITY,URINE CLEAR; COLOR,URINE YELLOW; GLUCOSE, URINE (UA) 3+ (NEGATIVE); KETONES,URINE NEGATIVE (NEGATIVE); LEUKOCYTE ESTERASE ,URINE NEGATIVE (NEGATIVE); NITRITE,URINE NEGATIVE (NEGATIVE); PROTEIN,URINE 1+ (NEGATIVE); WBC,URINE RARE /HPF
[2021-01-10 00:23] LABS: BASOPHILS # (AUTO) 0.1 10^3/uL (0.0-0.1); BASOPHILS % (AUTO) 1 % (0-10); EOSINOPHILS # (AUTO) 0.4 10^3/uL (0.0-0.3); EOSINOPHILS % (AUTO) 4 % (0-10); HEMATOCRIT 46 % (40-54); HEMOGLOBIN 15.9 g/dL (13.3-17.7); LYMPHOCYTES # (AUTO) 3.9 10^3/uL (1.0-4.0); LYMPHOCYTES % (AUTO) 38 % (12-44); MEAN CORPUSCULAR HEMOGLOBIN 32 pg (25-34); MEAN CORPUSCULAR HGB CONC 35 g/dL (32-36); MEAN CORPUSCULAR VOLUME 91 fL (80-99); MEAN PLATELET VOLUME 10.7 fL (9.0-12.2); MONOCYTES # (AUTO) 0.8 10^3/uL (0.0-1.0); MONOCYTES % (AUTO) 8 % (0-12); NEUTROPHILS % (AUTO) 50 % (42-75); PLATELET COUNT 252 10^3/uL (130-400); WHITE BLOOD COUNT 10.1 10^3/uL (4.3-11.0)
[2021-01-10 00:24] LABS: ALBUMIN 4.3 GM/DL (3.2-4.5); BILIRUBIN,TOTAL 0.6 MG/DL (0.1-1.0); CALCIUM 10.1 MG/DL (8.5-10.1); POTASSIUM 3.6 MMOL/L (3.6-5.0); TOTAL PROTEIN 6.9 GM/DL (6.4-8.2)
[2021-01-10 00:36] LABS: CREATININE SERUM 0.93 MG/DL (0.60-1.30)
[2021-01-10 01:44] VITALS: BP 120/76
--- NOTE | 2021-01-10 06:57 | Diagnostic Imaging Report ---
PROCEDURE: CT abdomen and pelvis without contrast. TECHNIQUE: Multiple contiguous axial images were obtained through the abdomen and pelvis without the use of intravenous contrast. Auto Exposure Controls were utilized during the CT exam to meet ALARA standards for radiation dose reduction. INDICATION: Abdominal pain. Constipation. COMPARISON: 01/13/2017. FINDINGS: The heart is unremarkable. The lung bases are clear. Stable bilateral adrenal nodules favored to represent adenomas. Nonobstructing calculi are seen in the kidneys bilaterally. No obstructing calculi or hydronephrosis. No perinephric fat stranding. The urinary bladder is nondistended. The liver, spleen, and pancreas have a normal appearance. Gallstones are visualized in a decompressed gallbladder. There is no pathologically enlarged mesenteric or retroperitoneal adenopathy. A moderate amount of stool is seen throughout the colon. There is wall thickening of the descending colon. Scattered diverticula are seen in the sigmoid colon. There is no free fluid or free air. No acute osseous abnormalities. There is calcified aortic and iliac atherosclerotic plaque without aneurysm. There is no free air, loculated collection, or adenopathy in the pelvis. IMPRESSION: 1. Moderate amount of stool in the colon which can be seen with constipation. 2. Wall thickening of the descending colon suggestive of colitis. 3. Diverticuli in the sigmoid colon without evidence of acute diverticulitis. 4. Bilateral nonobstructing calculi. No evidence of hydronephrosis. 5. Bilateral adrenal nodules favored to represent adenomas. These are stable compared to the prior exam. 6. Cholelithiasis without CT evidence of acute cholecystitis. Agree with overnight report. Dictated by: Dictated on workstation # [id number]
== END 2021-01-10 01:44 | disposition home or self-care (01) ==
LOC: EDUNIT# 23:40 → ER 23:42
DX: K59.00 Constipation, unspecified (principal); E11.9 Type 2 diabetes mellitus without complications
CPT/HCPCS: 36415; 74176; 80053; 81000; 85025